=== PATIENT | female | born 1965 | race Asian ===

== ENCOUNTER 2017-03-22 16:13 | Emergency (ER) | payer BC ==
[2017-03-22 17:45] VITALS: BP 173/92
--- NOTE | 2017-03-22 18:53 | RAD ---
indication: Laceration to the bridge of the nose and above the right eye after a fall COMPARISON: None A CT scan of the brain and and maxillofacial bones was performed without intravenous contrast enhancement. Contiguous axial sections were obtained from the lower cervical spine through the cranial vertex. BRAIN: The ventricles, cisterns and sulci are within normal limits. No significant focal abnormality or mass effect is seen. The lazo-white differentiation is adequately maintained. There is no evidence for intracranial hemorrhage. No significant bony abnormality is present. The mastoid air cells are appropriately aerated. The visualized paranasal sinuses are clear. FACIAL BONES: There is a mild degree of induration and thickening of the subcutaneous tissue overlying the right frontal bone and overlying the nose. Bones: There is no displaced fracture or dislocation. The orbital rim is intact. The zygomatic arch is intact. The pterygoid plates are intact Orbits: The globes are round. The optic nerves are symmetric. The extraocular musculature is normal. There is no post septal or intraconal inflammatory change. There is no retrobulbar hematoma. Paranasal Sinuses: The paranasal sinuses are clear. IMPRESSION: 1. No calvarial fracture or acute intracranial hemorrhage. 2. Mild soft tissue thickening and induration overlying the right orbit and nose without underlying facial bone fractures.
--- NOTE | 2017-03-22 18:55 | ED ---
Head Injury - HPI Summary HPI Summary: 52F presents with 2 lacerations s/p fell at water fall. she states that she slipped and fell onto her face. she denies any LOC. she denies any nausea or vomiting. She is not on any blood thinners. She states she did feel dizzy but that has resolved. She states that her tetanus is up to date. She denies any other pain besides headache. She states her pain is minimal and she has not taken anything for her pain. - History Of Current Complaint Chief Complaint: EDFacialInjury Stated Complaint: FALL/HEAD INJURY,DIZZINESS Time Seen by Provider: 03/22/17 17:36 Pain Intensity: 3 PMH/Surg Hx/FS Hx/Imm Hx Endocrine/Hematology History: Denies: Hx Anticoagulant Therapy Respiratory History: Denies: Hx Asthma Infectious Disease History: No Infectious Disease History: Denies: Traveled Outside the [place] in Last 30 Days - Family History Known Family History: Positive: Hypertension - Social History Alcohol Use: None Substance Use Type: Reports: None Smoking Status (MU): Unknown if Ever Smoked Review of Systems Negative: Fever Negative: Chest Pain Negative: Shortness Of Breath Positive: Other - laceration face Positive: Headache All Other Systems Reviewed And Are Negative: Yes Physical Exam Triage Information Reviewed: Yes Vital Signs On Initial Exam: Initial Vitals Temp Pulse Resp BP Pulse Ox 98.4 F 103 18 185/93 97 03/22/17 16:17 03/22/17 16:17 03/22/17 16:17 03/22/17 16:17 03/22/17 16:17 Vital Signs Reviewed: Yes Appearance: Positive: Well-Appearing Skin: Positive: Other - laceration above right eye brow 2cm and on nares 1 cm superficial Head/Face: Positive: Normal Head/Face Inspection, Other - no step off, racoon eyes, bernal sign Eyes: Positive: Normal, EOMI, KATLYN, Conjunctiva Clear ENT: Positive: Normal ENT inspection, Pharynx normal, TMs normal Respiratory/Lung Sounds: Positive: Clear to Auscultation, Breath Sounds Present Cardiovascular: Positive: Normal, RRR Neurological: Positive: Sensory/Motor Intact, Alert, Oriented to Person Place, Time, CN Intact II-III, Heel to Toe, Finger to Nose - Curtice Coma Scale Best Eye Response: 4 - Spontaneous Best Motor Response: 6 - Obeys Commands Best Verbal Response: 5 - Oriented Procedures - Laceration/Wound Repair 1 Location: head Description: Linear Length, Depth and Shape: 2cm superficial Irrigated w/ Saline (ccs): 100 Closure: Skin Adhesive 2 Location: head Description: Irregular Length, Depth and Shape: 1/2cm superficial Closure: Skin Adhesive Diagnostics - Vital Signs Vital Signs Temp Pulse Resp BP Pulse Ox 03/22/17 17:39 97.8 F 81 16 173/92 100 03/22/17 16:17 98.4 F 103 18 185/93 97 - Laboratory Lab Statement: Any lab studies that have been ordered have been reviewed, and results considered in the medical decision making process. Head Injury Course/Dx Course Of Treatment: 52F presents with 2 lacerations s/p fell at water fall. she states that she slipped and fell onto her face. she denies any LOC. she denies any nausea or vomiting. She is not on any blood thinners. She states she did feel dizzy but that has resolved. She states that her tetanus is up to date. She denies any other pain besides headache. She states her pain is minimal and she has not taken anything for her pain. normal neuro. placed glue on lacerations. CT head and maxillaryfacial normal. patient understands and agrees with plan. - Diagnoses Differential Diagnosis/HQI/PQRI: Concussion Without LOC, Contusion, Laceration Provider Diagnoses: Facial injury Discharge - Discharge Plan Condition: Good Disposition: HOME Patient Education Materials: Skin Adhesive Care (ED) Referrals: Non Staff,Doctor [Primary Care Provider] - Additional Instructions: Place ice on area Take Tylenol or ibuprofen for pain as needed every 6 hours Glue will fall off on own Avoid scrubbing area Use sunscreen on area after laceration has healed Return to ED if develop any signs of infection or any new or worsening symptoms
== END 2017-03-22 19:18 | disposition home or self-care (01) ==
LOC: ED 16:13
DX: S09.93XA Unspecified injury of face, initial encounter (principal); W19.XXXA Unspecified fall, initial encounter; Y92.9 Unspecified place or not applicable
CPT/HCPCS: 70450; 70486; 99282